=== PATIENT | female | born 1995 | race Hispanic/Latino ===

== ENCOUNTER 2016-12-03 13:20 | Emergency (ER) | payer OTHER ==
[~2016-12-03] VITALS: Ht 160 cm; Wt 72.2 kg
[~2016-12-03 13:20] MED LIST: ALYACEN1 EACH PO; CIPRO500 MG PO; CIPROFLOXACIN500 M1 PO; CRANBERRY TABL1 EACH PO; KEPPRA500 MG PO; KLONOPIN0.5 M1 PO; LYRICA25 MG PO; MOTRIN600 MG PO; NAPROSYN500 MG PO; NITROFURANTOIN50 MG PO; PAXIL CR25 MG PO; TOPAMAX100 MG PO; TRAMADOL HCL50 MG PO
[2016-12-03 16:02] VITALS: BP 127/83
== END 2016-12-03 16:02 | disposition home or self-care (01) ==
LOC: EME 13:20
DX: F32.9 Major depressive disorder, single episode, unspecified (principal); R56.9 Unspecified convulsions; Z87.891 Personal history of nicotine dependence
CPT/HCPCS: 90839; 99281; 99284

== ENCOUNTER 2017-02-02 21:30 | Emergency (ER) | payer OTHER ==
[~2017-02-02] VITALS: Ht 160 cm; Wt 74.9 kg
[2017-02-02] MEDS ORDERED: MOTRIN800 MG PO (22:31)
[2017-02-02] MEDS ORDERED: NORCO 10/3251 TABLET PO (22:31)
[2017-02-02] MEDS ORDERED: BACTROBAN OINTM22 GM TP (22:31)
[2017-02-02 22:52] VITALS: BP 124/67
[2017-02-03 12:15] LABS: CHLAMYDIA TRACHOMATIS NEGATIVE; NEISSERIA GONORRHOEAE NEGATIVE
== END 2017-02-02 22:53 | disposition home or self-care (01) ==
LOC: EME 21:30 → RME 21:30
PROVIDERS: Physician Assistant
DX: L98.9 Disorder of the skin and subcutaneous tissue, unspecified (principal); N90.89 Other specified noninflammatory disorders of vulva and perineum; R10.2 Pelvic and perineal pain; Z87.891 Personal history of nicotine dependence; K21.9 Gastro-esophageal reflux disease without esophagitis
CPT/HCPCS: 87070; 87075; 87076; 87077; 87147; 87185; 87186; 87205; 87254; 87491; 87591; 99281; 99285

== ENCOUNTER 2017-05-12 07:49 | Emergency (ER) | payer OTHER ==
[~2017-05-12] VITALS: Ht 160 cm; Wt 8.4 kg
[~2017-05-12 07:49] MED LIST changes: +BACTROBAN OINTM22 GM TP; +MOTRIN800 MG PO; +NORCO 10/3251 TABLET PO
[2017-05-12 08:28] LABS: HEMATOCRIT 37.8 % (36.0-46.0); MCH 30.4 PG (29.0-34.0); MCHC 32.8 G/DL (30.0-36.0); MCV 92.6 FL (83-99); MEAN PLAT.VOLUME 9.5 uM^3 (9.5-12.4); PLATELET COUNT 299 K/uL (156-360); RBC DIS.WIDTH-CV 13.1 % (11.8-14.6); RBC DIS.WIDTH-SD 44.4 % (39-53); RED BLOOD COUNT 4.08 M/uL (3.80-5.20); WHITE BLOOD COUNT 5.8 K/uL (4.1-10.2)
[2017-05-12 08:39] LABS: CHLORIDE 107 mEq/L (99-109); SODIUM 138 mEq/L (136-147)
[2017-05-12 08:41] LABS: GLUCOSE 124 mg/dL (70-99)
[2017-05-12 08:42] LABS: ANION GAP 7 MEQ/L (2-14)
[2017-05-12 08:45] LABS: GFR ESTIMATE (CALCULATED) > 59 mL/min/
[2017-05-12 08:46] LABS: UREA NITROGEN (BUN) 12 mg/dL (9-23)
[2017-05-12 08:49] LABS: TROP-I INTERPRETATION NEGATIVE; TROPONIN-I < 0.01 ng/mL (0.0-0.30)
[2017-05-12 08:53] LABS: QUANTITATIVE HCG < 4.0 MIU/ML
[2017-05-12 11:31] VITALS: BP 116/65
== END 2017-05-12 11:25 | disposition home or self-care (01) ==
LOC: EME 07:49
PROVIDERS: Emergency Medicine
DX: F41.0 Panic disorder [episodic paroxysmal anxiety] (principal); E86.0 Dehydration; R00.2 Palpitations; Z91.040 Latex allergy status; Z88.6 Allergy status to analgesic agent; Z87.891 Personal history of nicotine dependence; N83.209 Unspecified ovarian cyst, unspecified side
CPT/HCPCS: 71010; 80048; 81003; 84484; 84702; 85027; 93005; 99281; 99285; J2060; J7030

== ENCOUNTER 2017-05-28 19:18 | Emergency (ER) | payer OTHER ==
[~2017-05-28] VITALS: Ht 160 cm; Wt 79.1 kg
[2017-05-28 19:44] LABS: HEMATOCRIT 37.9 % (36.0-46.0); MCH 30.3 PG (29.0-34.0); MCHC 33.5 G/DL (30.0-36.0); MCV 90.5 FL (83-99); MEAN PLAT.VOLUME 9.4 uM^3 (9.5-12.4); PLATELET COUNT 357 K/uL (156-360); RBC DIS.WIDTH-CV 12.9 % (11.8-14.6); RBC DIS.WIDTH-SD 42.2 % (39-53); RED BLOOD COUNT 4.19 M/uL (3.80-5.20); WHITE BLOOD COUNT 8.3 K/uL (4.1-10.2)
[2017-05-28 19:54] LABS: CHLORIDE 104 mEq/L (99-109); POTASSIUM 3.9 mEq/L (3.7-5.4); SODIUM 137 mEq/L (136-147)
[2017-05-28 19:55] LABS: GLUCOSE 88 mg/dL (70-99)
[2017-05-28 19:57] LABS: ANION GAP 10 MEQ/L (2-14)
[2017-05-28 19:59] LABS: GFR ESTIMATE (CALCULATED) > 59 mL/min/
[2017-05-28 20:00] LABS: UREA NITROGEN (BUN) 13 mg/dL (9-23)
[2017-05-28 20:05] LABS: TROP-I INTERPRETATION NEGATIVE; TROPONIN-I < 0.01 ng/mL (0.0-0.30)
[2017-05-28 21:16] LABS: MAGNESIUM 2.1 mg/dL (1.3-2.7)
[2017-05-28 21:29] LABS: QUANTITATIVE HCG < 4.0 MIU/ML
[2017-05-28 21:58] VITALS: BP 129/81
== END 2017-05-28 21:50 | disposition home or self-care (01) ==
LOC: EME 19:18
DX: R00.2 Palpitations (principal); G40.909 Epilepsy, unspecified, not intractable, without status epilepticus; K21.9 Gastro-esophageal reflux disease without esophagitis; Z87.891 Personal history of nicotine dependence
CPT/HCPCS: 71020; 80048; 83735; 84443; 84484; 84702; 85027; 93005; 99281; 99283

== ENCOUNTER 2017-06-12 22:02 | Emergency (ER) | payer OTHER ==
[~2017-06-12] VITALS: Ht 160 cm; Wt 78.7 kg
[2017-06-12 23:04] LABS: HEMATOCRIT 37.4 % (36.0-46.0); MCHC 32.9 G/DL (30.0-36.0); MCV 91.2 FL (83-99); MEAN PLAT.VOLUME 9.8 uM^3 (9.5-12.4); PLATELET COUNT 278 K/uL (156-360); RBC DIS.WIDTH-CV 13.1 % (11.8-14.6); RBC DIS.WIDTH-SD 43.8 % (39-53); WHITE BLOOD COUNT 8.9 K/uL (4.1-10.2)
[2017-06-12 23:18] LABS: CHLORIDE 107 mEq/L (99-109); POTASSIUM 3.7 mEq/L (3.7-5.4); SODIUM 140 mEq/L (136-147)
[2017-06-12 23:21] LABS: GLUCOSE 94 mg/dL (70-99)
[2017-06-12 23:22] LABS: ANION GAP 11 MEQ/L (2-14); TOTAL BILIRUBIN 0.1 mg/dL (0.0-1.0)
[2017-06-12 23:24] LABS: ALKALINE PHOSPHATASE 72 IU/L (3-129); GFR ESTIMATE (CALCULATED) > 59 mL/min/
[2017-06-12 23:25] LABS: UREA NITROGEN (BUN) 12 mg/dL (9-23)
[2017-06-12 23:26] LABS: DIRECT BILIRUBIN 0.1 mg/dL (0.0-0.3)
[2017-06-13 00:33] LABS: ADD MIUA? YES; BILIRUBIN NEGATIVE; BLOOD NEGATIVE; COLOR YELLOW ((YELLOW)); GLUCOSE (STRIP) NEGATIVE; KETONES 5; LEUKOCYTES TRACE; NITRITE NEGATIVE; PROTEIN (STRIP) 100; UROBILINOGEN 0.2 MG/DL (0.2-1.0)
[2017-06-13 00:49] VITALS: BP 116/85
[2017-06-13 01:01] LABS: EPITHELIAL CELLS 3+ /HPF; RED BLOOD CELLS 0-5 /HPF (0-5)
[2017-06-13 01:02] LABS: BACTERIA 1+ /HPF; CALCIUM OXALATE CRYSTALS 2+ /HPF; CRYSTALS PRESENT; MUCUS 3+ /LPF; UCUL ADDED? NO
== END 2017-06-13 00:49 | disposition home or self-care (01) ==
LOC: EXP 22:02 → EME 22:02 → EXP 06-13 00:49
PROVIDERS: Physician Assistant
DX: G40.909 Epilepsy, unspecified, not intractable, without status epilepticus (principal); F32.9 Major depressive disorder, single episode, unspecified; K21.9 Gastro-esophageal reflux disease without esophagitis; Z87.891 Personal history of nicotine dependence
CPT/HCPCS: 80048; 80076; 81003; 85027; 99281; 99283

== ENCOUNTER 2017-07-13 22:53 | Emergency (ER) | payer OTHER ==
[~2017-07-13] VITALS: Ht 160 cm; Wt 77.9 kg
[2017-07-14 00:07] LABS: HEMATOCRIT 35.4 % (36.0-46.0); MCH 30.9 PG (29.0-34.0); MCHC 33.6 G/DL (30.0-36.0); MCV 91.9 FL (83-99); MEAN PLAT.VOLUME 9.4 uM^3 (9.5-12.4); PLATELET COUNT 301 K/uL (156-360); RBC DIS.WIDTH-CV 13.4 % (11.8-14.6); RBC DIS.WIDTH-SD 45.5 % (39-53); RED BLOOD COUNT 3.85 M/uL (3.80-5.20); WHITE BLOOD COUNT 8.7 K/uL (4.1-10.2)
[2017-07-14 00:21] LABS: CHLORIDE 107 mEq/L (99-109); POTASSIUM 3.7 mEq/L (3.7-5.4); SODIUM 140 mEq/L (136-147)
[2017-07-14 00:23] LABS: GLUCOSE 113 mg/dL (70-99)
[2017-07-14 00:25] LABS: ANION GAP 11 MEQ/L (2-14)
[2017-07-14 00:27] LABS: GFR ESTIMATE (CALCULATED) > 59 mL/min/
[2017-07-14 00:28] LABS: UREA NITROGEN (BUN) 12 mg/dL (9-23)
[2017-07-14 00:35] LABS: QUANTITATIVE HCG < 4.0 MIU/ML
[2017-07-14 00:58] LABS: ADD MIUA? YES; BILIRUBIN NEGATIVE; BLOOD NEGATIVE; COLOR YELLOW ((YELLOW)); GLUCOSE (STRIP) NEGATIVE; KETONES 5; LEUKOCYTES SMALL; NITRITE NEGATIVE; PROTEIN (STRIP) 30; SPECIFIC GRAVITY 1.027 (1.000-1.030); UROBILINOGEN 0.2 MG/DL (0.2-1.0)
[2017-07-14 01:13] LABS: BACTERIA 2+ /HPF; EPITHELIAL CELLS 2+ /HPF; MUCUS 4+ /LPF; RED BLOOD CELLS 0-5 /HPF (0-5); UCUL ADDED? YES
[2017-07-14 01:15] LABS: AMPHETAMINE NEGATIVE (500 ng/mL); BARBITURATES NEGATIVE (200 ng/mL); BENZODIAZEPINES NEGATIVE (150 ng/mL); COCAINE NEGATIVE (150 ng/mL); INTERNAL CONTROLS VALID? YES; METHADONE NEGATIVE (200 ng/mL); METHAMPHETAMINE NEGATIVE (500 ng/mL); OPIATES (MORPHINE) NEGATIVE (100 ng/mL); OXYCODONE NEGATIVE (100 ng/mL); PHENCYCLIDINE NEGATIVE (25 ng/mL); PROPOXYPHENE NEGATIVE (300 ng/mL); THC CANNABINOIDS NEGATIVE (50 ng/mL); TRICYCLIC ANTIDEPRESSANTS NEGATIVE (300 ng/mL)
[2017-07-14 01:53] VITALS: BP 101/59
== END 2017-07-14 01:54 | disposition home or self-care (01) ==
LOC: EME → EDBD 22:53 → EME 22:53
PROVIDERS: Emergency Medicine
DX: G40.909 Epilepsy, unspecified, not intractable, without status epilepticus (principal); F32.9 Major depressive disorder, single episode, unspecified; R51 Headache; F17.200 Nicotine dependence, unspecified, uncomplicated
CPT/HCPCS: 80048; 81003; 84702; 85027; 87077; 87086; 87186; 99281; 99285

== ENCOUNTER 2017-07-20 20:00 | Emergency (ER) | payer OTHER ==
[~2017-07-20] VITALS: Ht 157.5 cm; Wt 79.9 kg
[2017-07-20 20:34] LABS: ADD MIUA? YES; BILIRUBIN NEGATIVE; BLOOD SMALL; COLOR AMBER ((YELLOW)); GLUCOSE (STRIP) NEGATIVE; KETONES NEGATIVE; LEUKOCYTES SMALL; NITRITE NEGATIVE; PROTEIN (STRIP) 100; SPECIFIC GRAVITY 1.036 (1.000-1.030)
[2017-07-20 20:59] LABS: BACTERIA 1+ /HPF; CASTS PRESENT /LPF; CRYSTALS NONE SEEN; EPITHELIAL CELLS 2+ /HPF; MUCUS 3+ /LPF; RED BLOOD CELLS 0-5 /HPF (0-5); UCUL ADDED? YES
[2017-07-20 21:00] LABS: HYALINE CASTS 0-5 /LPF
[2017-07-20] MEDS ORDERED: AUGMENTIN875 MG PO (21:16)
[2017-07-20] MEDS ORDERED: ULTRAM50 MG PO (21:17)
[2017-07-20 21:35] VITALS: BP 135/101
== END 2017-07-20 21:36 | disposition home or self-care (01) ==
LOC: RME 20:00 → EME 20:00 → RME 21:36
PROVIDERS: Physician Assistant
DX: N39.0 Urinary tract infection, site not specified (principal); K04.7 Periapical abscess without sinus; F17.200 Nicotine dependence, unspecified, uncomplicated
CPT/HCPCS: 81003; 87077; 87086; 87186; 99281; 99284

== ENCOUNTER 2017-07-22 17:46 | Emergency (ER) | payer OTHER ==
[~2017-07-22] VITALS: Ht 157.5 cm; Wt 79.0 kg
[~2017-07-22 17:46] MED LIST changes: +AUGMENTIN875 MG PO; +ULTRAM50 MG PO
[2017-07-22] MEDS ORDERED: NAPROSYN500 MG PO (18:38)
[2017-07-22 19:08] VITALS: BP 117/72
== END 2017-07-22 19:08 | disposition home or self-care (01) ==
LOC: EME 17:46
PROC: 2W3MXYZ Immobilization of Left Lower Extremity using Other Device (ICD-10-PCS; principal; 2017-07-22)
DX: M25.462 Effusion, left knee (principal); S86.812A Strain of other muscle(s) and tendon(s) at lower leg level, left leg, initial encounter; W18.30XA Fall on same level, unspecified, initial encounter; Y93.01 Activity, walking, marching and hiking; F17.200 Nicotine dependence, unspecified, uncomplicated; Z88.6 Allergy status to analgesic agent; Z91.040 Latex allergy status
CPT/HCPCS: 73564; 99281; 99282

== ENCOUNTER 2017-07-29 14:04 | Emergency (ER) | payer OTHER ==
[~2017-07-29] VITALS: Ht 157.5 cm; Wt 80.3 kg
[2017-07-29] MEDS ORDERED: MOTRIN600 MG PO (16:10)
[2017-07-29] MEDS ORDERED: NORCO 5/3251 TABLET PO (16:10)
[2017-07-29 16:13] VITALS: BP 110/72
== END 2017-07-29 16:14 | disposition home or self-care (01) ==
LOC: EME 14:04
DX: K08.89 Other specified disorders of teeth and supporting structures (principal); K03.81 Cracked tooth; F17.200 Nicotine dependence, unspecified, uncomplicated
CPT/HCPCS: 99281; 99283

== ENCOUNTER 2017-08-07 11:13 | Emergency (ER) | payer OTHER ==
[~2017-08-07] VITALS: Ht 157.5 cm; Wt 80.5 kg
[~2017-08-07 11:13] MED LIST changes: +NORCO 5/3251 TABLET PO
[2017-08-07 11:49] LABS: HEMATOCRIT 36.2 % (36.0-46.0); MCH 30.3 PG (29.0-34.0); MCHC 32.9 G/DL (30.0-36.0); MCV 92.1 FL (83-99); PLATELET COUNT 314 K/uL (156-360); RBC DIS.WIDTH-CV 13.2 % (11.8-14.6); RBC DIS.WIDTH-SD 44.6 % (39-53); RED BLOOD COUNT 3.93 M/uL (3.80-5.20); WHITE BLOOD COUNT 4.8 K/uL (4.1-10.2)
[2017-08-07 11:59] LABS: CHLORIDE 109 mEq/L (99-109); POTASSIUM 3.9 mEq/L (3.7-5.4); SODIUM 139 mEq/L (136-147)
[2017-08-07 12:01] LABS: GLUCOSE 102 mg/dL (70-99)
[2017-08-07 12:02] LABS: ANION GAP 10 MEQ/L (2-14)
[2017-08-07 12:03] LABS: TOTAL BILIRUBIN 0.3 mg/dL (0.0-1.0)
[2017-08-07 12:05] LABS: ALKALINE PHOSPHATASE 85 IU/L (3-129); GFR ESTIMATE (CALCULATED) > 59 mL/min/
[2017-08-07 12:06] LABS: UREA NITROGEN (BUN) 11 mg/dL (9-23)
[2017-08-07 12:14] LABS: QUANTITATIVE HCG < 4.0 MIU/ML
[2017-08-07 13:14] LABS: ADD MIUA? YES; BILIRUBIN NEGATIVE; BLOOD NEGATIVE; COLOR YELLOW ((YELLOW)); GLUCOSE (STRIP) NEGATIVE; KETONES NEGATIVE; LEUKOCYTES TRACE; NITRITE NEGATIVE; PROTEIN (STRIP) 30; SPECIFIC GRAVITY 1.026 (1.000-1.030)
[2017-08-07 13:20] LABS: BACTERIA NONE SEEN /HPF; EPITHELIAL CELLS 2+ /HPF; MUCUS 3+ /LPF; RED BLOOD CELLS 0-5 /HPF (0-5); UCUL ADDED? NO; WHITE BLOOD CELLS 0-5 /HPF (0-5)
[2017-08-07] MEDS ORDERED: ZOFRAN ODT4 MG PO (14:30)
[2017-08-07 14:48] VITALS: BP 126/69
[2017-08-07 15:37] LABS: C DIFF TOXIN NEGATIVE (NEGATIVE)
[2017-08-07 15:50] LABS: PROBE CHECK PASS; SPECIMEN PROCESSING CONTROL PASS
== END 2017-08-07 14:49 | disposition home or self-care (01) ==
LOC: EME 11:13
PROVIDERS: Physician Assistant
DX: R11.2 Nausea with vomiting, unspecified (principal); R19.7 Diarrhea, unspecified; M35.00 Sjogren syndrome, unspecified; K21.9 Gastro-esophageal reflux disease without esophagitis; R56.9 Unspecified convulsions; Z96.89 Presence of other specified functional implants; F32.9 Major depressive disorder, single episode, unspecified; F17.200 Nicotine dependence, unspecified, uncomplicated; Z87.440 Personal history of urinary (tract) infections
CPT/HCPCS: 80053; 81003; 84702; 85027; 87177; 87493; 87506; 99281; 99284

== ENCOUNTER 2017-08-29 17:23 | Emergency (ER) | payer OTHER ==
[~2017-08-29 17:23] MED LIST changes: +ZOFRAN ODT4 MG PO
== END 2017-08-29 18:52 | disposition left against medical advice (07) ==
LOC: EME 17:23
DX: R42 Dizziness and giddiness (principal); Z53.21 Procedure and treatment not carried out due to patient leaving prior to being seen by health care provider

== ENCOUNTER 2017-12-17 19:53 | Emergency (ER) | payer OTHER ==
[~2017-12-17] VITALS: Ht 157.5 cm; Wt 85.0 kg
[~2017-12-17 19:53] MED LIST changes: +BENTYL20 MG PO; +MACROBID100 MG PO
[2017-12-17 21:10] LABS: HEMATOCRIT 38.5 % (36.0-46.0); HEMOGLOBIN 13.1 G/DL (11.9-15.5); MCH 30.8 PG (29.0-34.0); MCV 90.6 FL (83-99); PLATELET COUNT 335 K/uL (156-360); RBC DIS.WIDTH-CV 13.3 % (11.8-14.6); RBC DIS.WIDTH-SD 44.3 % (39-53); RED BLOOD COUNT 4.25 M/uL (3.80-5.20); WHITE BLOOD COUNT 7.2 K/uL (4.1-10.2)
[2017-12-17 21:20] LABS: CHLORIDE 106 mEq/L (99-109); SODIUM 139 mEq/L (136-147)
[2017-12-17 21:21] LABS: GLUCOSE 83 mg/dL (70-99)
[2017-12-17 21:25] LABS: CREATININE 0.8 mg/dL (0.6-1.3); GFR ESTIMATE (CALCULATED) > 59 mL/min/
[2017-12-17 21:26] LABS: UREA NITROGEN (BUN) 15 mg/dL (9-23)
[2017-12-17 22:19] LABS: APPEARANCE CLEAR ((CLEAR)); BILIRUBIN SMALL; BLOOD NEGATIVE; COLOR YELLOW ((YELLOW)); GLUCOSE (STRIP) NEGATIVE; KETONES NEGATIVE; LEUKOCYTES NEGATIVE; NITRITE NEGATIVE; PROTEIN (STRIP) NEGATIVE; SPECIFIC GRAVITY 1.032 (1.000-1.030); UCUL ADDED? NO; UROBILINOGEN 0.2 MG/DL (0.2-1.0)
[2017-12-18] MEDS ORDERED: FLEXERIL5 MG PO (00:14)
[2017-12-18 00:25] VITALS: BP 129/76
== END 2017-12-18 00:28 | disposition home or self-care (01) ==
LOC: EME 19:53
DX: M54.9 Dorsalgia, unspecified (principal); Z87.440 Personal history of urinary (tract) infections; K21.9 Gastro-esophageal reflux disease without esophagitis; R56.9 Unspecified convulsions; F17.200 Nicotine dependence, unspecified, uncomplicated; F32.9 Major depressive disorder, single episode, unspecified; Z91.040 Latex allergy status; Z88.5 Allergy status to narcotic agent
CPT/HCPCS: 80048; 81003; 85027; 99281; 99284

== ENCOUNTER 2018-01-13 15:34 | Emergency (ER) | payer OTHER ==
[~2018-01-13] VITALS: Ht 157.5 cm; Wt 84.3 kg
[~2018-01-13 15:34] MED LIST changes: +FLEXERIL5 MG PO
[2018-01-13] MEDS ORDERED: TYLENOL WITH C1 EACH PO (16:51)
[2018-01-13] MEDS ORDERED: PEN-VEE K,VEET500 MG PO (16:52)
[2018-01-13 16:58] VITALS: BP 115/67
== END 2018-01-13 16:59 | disposition home or self-care (01) ==
LOC: EME 15:34
DX: K08.89 Other specified disorders of teeth and supporting structures (principal); K21.9 Gastro-esophageal reflux disease without esophagitis; M35.00 Sjogren syndrome, unspecified; N94.6 Dysmenorrhea, unspecified; F32.9 Major depressive disorder, single episode, unspecified; F17.200 Nicotine dependence, unspecified, uncomplicated; Z91.040 Latex allergy status; Z88.5 Allergy status to narcotic agent; Z88.6 Allergy status to analgesic agent; Z88.4 Allergy status to anesthetic agent; Z88.8 Allergy status to other drugs, medicaments and biological substances
CPT/HCPCS: 99281; 99284

== ENCOUNTER 2018-05-23 21:43 | Emergency (ER) | payer OTHER ==
[~2018-05-23] VITALS: Ht 160 cm; Wt 85.6 kg
[~2018-05-23 21:43] MED LIST changes: +PEN-VEE K,VEET500 MG PO; +TYLENOL WITH C1 EACH PO
[2018-05-23] MEDS ORDERED: NORCO 5/3251 TABLET PO (23:20)
[2018-05-23 23:31] VITALS: BP 118/85
== END 2018-05-23 23:38 | disposition home or self-care (01) ==
LOC: EME 21:43
DX: S83.92XA Sprain of unspecified site of left knee, initial encounter (principal); X50.9XXA Other and unspecified overexertion or strenuous movements or postures, initial encounter; Y93.02 Activity, running; Q79.6 Ehlers-Danlos syndromes; F17.200 Nicotine dependence, unspecified, uncomplicated; Z91.040 Latex allergy status; Z88.5 Allergy status to narcotic agent; Z88.4 Allergy status to anesthetic agent; Z88.6 Allergy status to analgesic agent; Z88.8 Allergy status to other drugs, medicaments and biological substances
CPT/HCPCS: 73564; 99281; 99283

== ENCOUNTER 2018-06-26 17:38 | Emergency (ER) | payer OTHER ==
[~2018-06-26] VITALS: Ht 160 cm; Wt 85.5 kg
[2018-06-26] MEDS ORDERED: VALIUM5 MG PO (19:16)
[2018-06-26 19:22] VITALS: BP 125/70
== END 2018-06-26 19:23 | disposition home or self-care (01) ==
LOC: EME 17:38
DX: M62.838 Other muscle spasm (principal); K21.9 Gastro-esophageal reflux disease without esophagitis; F32.9 Major depressive disorder, single episode, unspecified; F17.200 Nicotine dependence, unspecified, uncomplicated; Z91.040 Latex allergy status; Z88.5 Allergy status to narcotic agent; Z88.6 Allergy status to analgesic agent; Z88.4 Allergy status to anesthetic agent; Z88.8 Allergy status to other drugs, medicaments and biological substances
CPT/HCPCS: 99281; 99283

== ENCOUNTER 2018-06-28 11:58 | Emergency (ER) | payer OTHER ==
[~2018-06-28] VITALS: Ht 160 cm; Wt 85.1 kg
[~2018-06-28 11:58] MED LIST changes: +VALIUM5 MG PO
[2018-06-28 14:35] LABS: HEMATOCRIT 42.7 % (36.0-46.0); HEMOGLOBIN 14.4 G/DL (11.9-15.5); MCH 31.1 PG (29.0-34.0); MCHC 33.7 G/DL (30.0-36.0); MCV 92.2 FL (83-99); PLATELET COUNT 293 K/uL (156-360); RBC DIS.WIDTH-CV 12.7 % (11.8-14.6); RBC DIS.WIDTH-SD 43.2 % (39-53); RED BLOOD COUNT 4.63 M/uL (3.80-5.20); WHITE BLOOD COUNT 10.3 K/uL (4.1-10.2)
[2018-06-28 14:53] LABS: ALBUMIN 4.1 g/dL (3.2-4.8); CHLORIDE 105 mEq/L (99-109); POTASSIUM 4.5 mEq/L (3.7-5.4); SODIUM 139 mEq/L (136-147)
[2018-06-28 14:56] LABS: GLUCOSE 75 mg/dL (70-99); TOTAL PROTEIN 7.8 g/dL (6.4-8.3)
[2018-06-28 14:56] LABS: AMPHETAMINE NEGATIVE (500 ng/mL); BARBITURATES NEGATIVE (200 ng/mL); BENZODIAZEPINES PRESUMPTIVE POSITIVE (150 ng/mL); BUPRENORPHINE NEGATIVE (10 ng/mL); COCAINE NEGATIVE (150 ng/mL); METHADONE NEGATIVE (200 ng/mL); METHAMPHETAMINE NEGATIVE (500 ng/mL); OPIATES (MORPHINE) NEGATIVE (100 ng/mL); OXYCODONE NEGATIVE (100 ng/mL); PHENCYCLIDINE NEGATIVE (25 ng/mL); PROPOXYPHENE NEGATIVE (300 ng/mL); THC CANNABINOIDS PRESUMPTIVE POSITIVE (50 ng/mL); TRICYCLIC ANTIDEPRESSANTS PRESUMPTIVE POSITIVE (300 ng/mL)
[2018-06-28 14:58] LABS: TOTAL BILIRUBIN 0.3 mg/dL (0.0-1.0)
[2018-06-28 14:59] LABS: ALKALINE PHOSPHATASE 100 IU/L (3-129); CREATININE 0.8 mg/dL (0.6-1.3); GFR ESTIMATE (CALCULATED) > 59 mL/min/; SERUM ETHYL ALCOHOL < 10 mg/dL
[2018-06-28 15:01] LABS: AST (GOT) 17 IU/L (2-34); UREA NITROGEN (BUN) 12 mg/dL (9-23)
[2018-06-28 15:02] LABS: ALT (GPT) 13 IU/L (3-49)
[2018-06-28 15:11] LABS: QUANTITATIVE HCG < 4.0 MIU/ML
[2018-06-28 15:46] LABS: BENZODIAZEPINES, URINE SCREEN POSITIVE (200 ng/mL)
[2018-06-28 16:14] LABS: THYROTROPIN (TSH) 1.7 MIU/L (0.4-5.5)
[2018-06-28] MEDS ORDERED: FLEXERIL10 MG PO (21:26)
[2018-06-28 21:58] VITALS: BP 116/81
== END 2018-06-28 21:50 | disposition home or self-care (01) ==
LOC: EME 11:58
PROVIDERS: Emergency Medicine
DX: F32.9 Major depressive disorder, single episode, unspecified (principal); M54.2 Cervicalgia; G89.29 Other chronic pain; F12.90 Cannabis use, unspecified, uncomplicated; Q79.6 Ehlers-Danlos syndromes; K21.9 Gastro-esophageal reflux disease without esophagitis; F17.200 Nicotine dependence, unspecified, uncomplicated; Z91.040 Latex allergy status; Z88.5 Allergy status to narcotic agent; Z88.6 Allergy status to analgesic agent; Z88.4 Allergy status to anesthetic agent; Z88.8 Allergy status to other drugs, medicaments and biological substances
CPT/HCPCS: 70490; 80053; 84443; 84702; 84999; 85027; 90839; 99281; 99285; G0480